=== PATIENT | female | born 1990 | race Caucasian/White ===

== ENCOUNTER 2021-06-01 17:22 | Emergency (ER) | payer MEDICAID, OTHER ==
[~2021-06-01] VITALS: Ht 149.9 cm; Wt 67.0 kg
[2021-06-01] MEDS ORDERED: CALCIUM CARBONATE 500MG TABLET CHEW PO ONE ×2 (19:00→21:30)
[2021-06-01 22:31] VITALS: BP 106/84
== END 2021-06-01 22:32 | disposition home or self-care (01) ==
LOC: ER 17:22
DX: K29.70 Gastritis, unspecified, without bleeding (principal)
CPT/HCPCS: 81025; 99283